=== PATIENT | male | born 1965 | race Caucasian/White ===

== ENCOUNTER 2020-01-12 12:45 | Inpatient (IN) | payer MEDICAID ==
[~2020-01-12] VITALS: Ht 162.6 cm; Wt 73.1 kg
[2020-01-12] MEDS ORDERED: DiphenhydrAMINE HCL 50 MG/ML VIAL IVP ONE (13:15)
[2020-01-12] MEDS ORDERED: LORazepam 2 MG/ML VIAL IVP ONE (13:15)
[2020-01-12] MEDS ORDERED: THIAMINE 100 MG/ML 2 ML VIAL IVP ONE (13:15)
[2020-01-12] MEDS ORDERED: HALOPERIDOL LACTATE 5 MG/ML VIAL IM ONE (13:15)
[2020-01-12] MEDS ORDERED: FOLIC ACID 5 MG/ML 10 ML VIAL IVP ONE (13:15)
[2020-01-12 13:35] LABS: BASOPHILS % (AUTO) 0.2 % (0.0-2.0); EOSINOPHILS % (AUTO) 0 % (1.0-6.0); HEMATOCRIT 42.7 % (41-53); HEMOGLOBIN 14.6 g/dL (13.5-17.5); LYMPHOCYTES # (AUTO) 0.9 K/uL (1.0-4.8); LYMPHOCYTES % (AUTO) 5.9 % (22.0-44.0); MEAN CORPUSCULAR HEMOGLOBIN 29.4 pg (26.0-34.0); MEAN CORPUSCULAR HGB CONC 34.2 G/dL (31.0-37.0); MEAN CORPUSCULAR VOLUME 86 fL (80-100); MONOCYTES # (AUTO) 1.1 K/uL (0.1-1.0); MONOCYTES % (AUTO) 7.3 % (2.0-9.0); NEUTROPHILS # (AUTO) 12.8 K/uL (1.8-7.7); PLATELET COUNT (AUTO) 328 K/uL (150-450); RED BLOOD CELL COUNT(AUTO) 4.96 MIL/uL (4.50-5.90); RED CELL DISTRIBUTION WIDTH 13.6 % (11.5-14.5)
[2020-01-12 13:36] LABS: NEUTROPHILS % (AUTO) 86.6 % (40.0-70.0)
[2020-01-12 13:43] LABS: ANION GAP 14 mmol/L (8-16); CARBON DIOXIDE 22 mmol/L (22-29); CHLORIDE 94 mmol/L (98-107); CREATININE 1.83 mg/dL (0.60-1.30); GLOMERULAR FILTR. RATE CALC 39 mL/min (>60); GLUCOSE,RANDOM 190 mg/dL (70-110); POTASSIUM 3.3 mmol/L (3.5-5.1); SODIUM SERUM 130 mmol/L (136-145); UREA NITROGEN, BLOOD 19 mg/dL (7-18)
[2020-01-12 13:43] LABS: AMPHET/METH SCREEN,URINE POSITIVE (NEGATIVE); BARBITURATE SCREEN, URINE NEGATIVE (NEGATIVE); BENZODIAZEPINES SCREEN,URINE NEGATIVE (NEGATIVE); CANNABINOID SCREEN,URINE NEGATIVE (NEGATIVE); COCAINE SCREEN,URINE NEGATIVE (NEGATIVE); METHADONE SCREEN, URINE NEGATIVE (NEGATIVE); OPIATE SCREEN,URINE NEGATIVE (NEGATIVE)
[2020-01-12 13:49] LABS: INR 1.1 (0.9-1.1); PROTHROMBIN TIME 10.9 SEC (9.4-11.6)
[2020-01-12 13:51] LABS: APPEARANCE,URINE CLOUDY (CLEAR); BILIRUBIN,URINE NEGATIVE (NEGATIVE); GLUCOSE, URINE (UA) 100 mg/dL (NEGATIVE); KETONES,URINE 15 mg/dL (NEGATIVE); LEUKOCYTE ESTERASE ,URINE NEGATIVE (NEGATIVE); NITRATE,URINE NEGATIVE (NEGATIVE); OCCULT BLOOD,URINE NEGATIVE (NEGATIVE); PROTEIN,URINE TRACE (NEGATIVE); UROBILINOGEN,URINE 0.2 mg/dL (<=1.0)
[2020-01-12 13:56] LABS: PHENCYCLIDINE SCREEN,URINE NEGATIVE (NEGATIVE)
[2020-01-12 14:00] LABS: BACTERIA,URINE None Seen /HPF (None Seen); RBC,URINE None Seen /HPF (0-2); SQUAMOUS EPITHELIAL CELL,UR Few /LPF (None Seen); WBC,URINE 0-2 /HPF (0-5)
[2020-01-12] MEDS ORDERED: IOVERSOL 350 MG/ML 100 ML VIAL ONE (14:03)
[2020-01-12] MEDS ORDERED: SODIUM CHLORIDE 0.9% 100 ML ONE (14:03)
[2020-01-12 14:08] LABS: ALANINE AMINOTRANSFERASE 33 U/L (12-78); ALKALINE PHOSPHATASE 67 U/L (46-116); ASPARTATE AMINOTRANSFERASE 33 U/L (15-37); BILIRUBIN,TOTAL 1.7 mg/dL (0.1-1.0); CREATINE KINASE, TOTAL ONLY 698 U/L (39-308); LIPASE 69 U/L (73-393); TOTAL PROTEIN, SERUM 8.1 g/dL (6.4-8.2)
[2020-01-12 14:11] LABS: B-TYPE NATRIURETIC PEPTIDE 55 pg/mL (0-100)
[2020-01-12 14:13] LABS: AMYLASE 43 U/L (25-115)
[2020-01-12] MEDS ORDERED: BISACODYL 10 MG RECTAL RECTAL SUPPOSITORY PR PRN (14:30)
[2020-01-12] MEDS ORDERED: ACETAMINOPHEN 325 MG TABLET PO PRN ×2 (14:30)
[2020-01-12] MEDS: PANTOPRAZOLE SODIUM 40 MG DR TABLET PO SCH (14:30)
[2020-01-12] MEDS ORDERED: ONDANSETRON HCL 4 MG/2 ML VIAL IVP PRN ×2 (14:30)
[2020-01-12] MEDS ORDERED: MAGNESIUM HYDROXIDE SUSPENSION 30 ML UDCUP PO PRN (14:30)
[2020-01-12] MEDS ORDERED: DOCUSATE SODIUM 100 MG CAPSULE PO PRN (14:30)
[2020-01-12] MEDS ORDERED: ALBUTEROL SULFATE 2.5 MG/0.5 ML NEB SOLUTION NEB PRN (14:30)
[2020-01-12] MEDS ORDERED: IPRATROPIUM BROMIDE 0.5 MG/2.5 ML NEB SOLUTION NEB PRN (14:30)
[2020-01-12] MEDS ORDERED: 0.9% SODIUM CHLORIDE 10 ML SYRINGE IVP PRN ×2 (14:30)
[2020-01-12 14:31] LABS: LACTIC ACID 2.4 mmol/L (0.4-2.0)
[2020-01-12] MEDS: 1: MAGNESIUM SULFATE 2 GM, MVI, ADULT NO.1 WITH VIT K 10 ML, THIAMINE 100 MG, FOLIC ACID IV SCH ×5 (15:22)
[2020-01-12] MEDS: CefTRIAXone 1 GM/DEXTROSE 50 ML IV SCH (15:22)
[2020-01-12] MEDS: MetroNIDAZOLE 500 MG/NACL 100 ML IV SCH (16:58)
[2020-01-12 18:37] LABS: TROPONIN I 0.03 ng/mL (0.00-0.05)
[2020-01-12] MEDS: HEPARIN SODIUM,PORCINE 5,000 UNITS/ML VIAL SQ SCH (20:56)
[2020-01-12 21:36] VITALS: BP 119/76
[2020-01-12] MEDS ORDERED: SODIUM CHLORIDE 0.9% 1,000 ML ONE (22:55)
[2020-01-13] MEDS: LORazepam 2 MG/ML VIAL IVP PRN (00:52)
[2020-01-13] MEDS: 1: MAGNESIUM SULFATE 2 GM, MVI, ADULT NO.1 WITH VIT K 10 ML, THIAMINE 100 MG, FOLIC ACID IV SCH ×10 (01:40→17:25)
[2020-01-13] MEDS: MetroNIDAZOLE 500 MG/NACL 100 ML IV SCH ×3 (01:41→15:39)
[2020-01-13 05:02] VITALS: BP 121/75
[2020-01-13 07:32] LABS: HEMOGLOBIN A1C 7.1 % (3.8-5.6)
[2020-01-13] MEDS: PANTOPRAZOLE SODIUM 40 MG DR TABLET PO SCH (07:44)
[2020-01-13 08:17] LABS: ALBUMIN 3.4 g/dL (3.4-5.0); BILIRUBIN,TOTAL 0.9 mg/dL (0.1-1.0); CALCIUM, TOTAL 8.5 mg/dL (8.8-10.5); CREATININE 1.39 mg/dL (0.60-1.30); FREE T4 (FREE THYROXINE) 1.08 ng/dL (0.76-1.46); POTASSIUM 3.4 mmol/L (3.5-5.1); THYROID STIMULATING HORMONE 1.84 uIU/mL (0.36-3.74); TOTAL PROTEIN, SERUM 7.2 g/dL (6.4-8.2)
[2020-01-13 08:37] VITALS: BP 114/81
[2020-01-13 08:43] LABS: BASOPHILS % (AUTO) 0.4 % (0.0-2.0); EOSINOPHILS % (AUTO) 1.8 % (1.0-6.0); HEMATOCRIT 43.1 % (41-53); HEMOGLOBIN 14.4 g/dL (13.5-17.5); LYMPHOCYTES # (AUTO) 1.7 K/uL (1.0-4.8); LYMPHOCYTES % (AUTO) 17.8 % (22.0-44.0); MEAN CORPUSCULAR HEMOGLOBIN 29.2 pg (26.0-34.0); MEAN CORPUSCULAR HGB CONC 33.3 G/dL (31.0-37.0); MEAN CORPUSCULAR VOLUME 88 fL (80-100); MONOCYTES # (AUTO) 0.9 K/uL (0.1-1.0); NEUTROPHILS # (AUTO) 6.8 K/uL (1.8-7.7); RED BLOOD CELL COUNT(AUTO) 4.93 MIL/uL (4.50-5.90); RED CELL DISTRIBUTION WIDTH 14.5 % (11.5-14.5)
[2020-01-13 08:45] LABS: PLATELET COUNT (AUTO) 312 K/uL (150-450)
[2020-01-13] MEDS: HEPARIN SODIUM,PORCINE 5,000 UNITS/ML VIAL SQ SCH ×2 (08:47→21:07)
[2020-01-13 11:09] VITALS: BP 124/79
[2020-01-13] MEDS ORDERED: DEXTROSE 50%-WATER 25 GM/50 ML SYRINGE IVP PRN (13:00)
[2020-01-13] MEDS ORDERED: POTASSIUM CHLORIDE 20 MEQ ER TABLET PO PRN (13:15)
[2020-01-13] MEDS ORDERED: POTASSIUM CHL 10 MEQ/WATER 50 ML IV PRN (13:15)
[2020-01-13] MEDS: CefTRIAXone 1 GM/DEXTROSE 50 ML IV SCH (13:39)
[2020-01-13 16:06] VITALS: BP 117/74
[2020-01-13 20:00] VITALS: BP 140/92
[2020-01-14 00:20] VITALS: BP 143/97
[2020-01-14] MEDS ORDERED: SODIUM CHLORIDE 0.9% 1,000 ML ONE (02:01)
[2020-01-14] MEDS: 1: MAGNESIUM SULFATE 2 GM, MVI, ADULT NO.1 WITH VIT K 10 ML, THIAMINE 100 MG, FOLIC ACID IV SCH ×15 (02:06→22:52)
[2020-01-14] MEDS: MetroNIDAZOLE 500 MG/NACL 100 ML IV SCH ×3 (02:07→16:11)
[2020-01-14 04:33] VITALS: BP 129/91
[2020-01-14 05:30] LABS: GLUCOMETER DEV NAME(LOC) 5S.2A; GLUCOSE,POINT OF CARE 150 MG/DL (70-110)
[2020-01-14 05:30] LABS: GLUCOMETER DEV NAME(LOC) 5S.2A; GLUCOSE,POINT OF CARE 113 MG/DL (70-110)
[2020-01-14 07:15] LABS: GLUCOMETER DEV NAME(LOC) 5S.2A; GLUCOSE,POINT OF CARE 130 MG/DL (70-110)
[2020-01-14 07:19] LABS: BASOPHILS % (AUTO) 0.7 % (0.0-2.0); EOSINOPHILS % (AUTO) 3.5 % (1.0-6.0); HEMATOCRIT 41.7 % (41-53); HEMOGLOBIN 14.1 g/dL (13.5-17.5); LYMPHOCYTES # (AUTO) 1.8 K/uL (1.0-4.8); LYMPHOCYTES % (AUTO) 22.1 % (22.0-44.0); MEAN CORPUSCULAR HEMOGLOBIN 29.9 pg (26.0-34.0); MEAN CORPUSCULAR HGB CONC 33.9 G/dL (31.0-37.0); MEAN CORPUSCULAR VOLUME 88 fL (80-100); MONOCYTES # (AUTO) 0.7 K/uL (0.1-1.0); NEUTROPHILS # (AUTO) 5.3 K/uL (1.8-7.7); NEUTROPHILS % (AUTO) 64.7 % (40.0-70.0); PLATELET COUNT (AUTO) 289 K/uL (150-450); RED BLOOD CELL COUNT(AUTO) 4.73 MIL/uL (4.50-5.90); RED CELL DISTRIBUTION WIDTH 14.4 % (11.5-14.5)
[2020-01-14 07:29] VITALS: BP 137/89
[2020-01-14 07:59] LABS: ALBUMIN 3.1 g/dL (3.4-5.0); BILIRUBIN,TOTAL 0.5 mg/dL (0.1-1.0); CALCIUM, TOTAL 8.3 mg/dL (8.8-10.5); CREATININE 1.34 mg/dL (0.60-1.30); POTASSIUM 3.7 mmol/L (3.5-5.1); TOTAL PROTEIN, SERUM 6.8 g/dL (6.4-8.2)
[2020-01-14] MEDS: HEPARIN SODIUM,PORCINE 5,000 UNITS/ML VIAL SQ SCH ×2 (08:05→22:52)
[2020-01-14] MEDS: PANTOPRAZOLE SODIUM 40 MG DR TABLET PO SCH (09:00)
[2020-01-14 10:53] VITALS: BP 147/91
[2020-01-14] MEDS: INSULIN LISPRO 100 UNITS/ML SQ PRN (12:01)
[2020-01-14] MEDS: LORazepam 2 MG/ML VIAL IVP PRN (12:59)
[2020-01-14] MEDS: CefTRIAXone 1 GM/DEXTROSE 50 ML IV SCH (15:32)
[2020-01-14 15:50] VITALS: BP 158/90
[2020-01-14 17:16] LABS: GLUCOMETER DEV NAME(LOC) 5N.1; GLUCOSE,POINT OF CARE 148 MG/DL (70-110)
[2020-01-14 18:47] LABS: GLUCOMETER DEV NAME(LOC) 5N.1; GLUCOSE,POINT OF CARE 116 MG/DL (70-110)
[2020-01-14 20:44] VITALS: BP 135/79
[2020-01-14 23:47] LABS: GLUCOMETER DEV NAME(LOC) 5S.2A; GLUCOSE,POINT OF CARE 144 MG/DL (70-110)
[2020-01-15] VITALS (8 sets, daily range): BP systolic 113–141; BP diastolic 79–110
[2020-01-15] MEDS: MetroNIDAZOLE 500 MG/NACL 100 ML IV SCH ×3 (01:35→16:27)
[2020-01-15 08:13] LABS: BILIRUBIN,TOTAL 0.4 mg/dL (0.1-1.0); CALCIUM, TOTAL 8.3 mg/dL (8.8-10.5); CREATININE 1.3 mg/dL (0.60-1.30); POTASSIUM 3.8 mmol/L (3.5-5.1); TOTAL PROTEIN, SERUM 6.6 g/dL (6.4-8.2)
[2020-01-15] MEDS: HEPARIN SODIUM,PORCINE 5,000 UNITS/ML VIAL SQ SCH ×2 (08:23→21:29)
[2020-01-15] MEDS: PANTOPRAZOLE SODIUM 40 MG DR TABLET PO SCH (08:23)
[2020-01-15 12:12] LABS: GLUCOMETER DEV NAME(LOC) 5S.1; GLUCOSE,POINT OF CARE 131 MG/DL (70-110)
[2020-01-15] MEDS: 1: MAGNESIUM SULFATE 2 GM, MVI, ADULT NO.1 WITH VIT K 10 ML, THIAMINE 100 MG, FOLIC ACID IV SCH ×5 (12:46)
[2020-01-15] MEDS: CefTRIAXone 1 GM/DEXTROSE 50 ML IV SCH (15:18)
[2020-01-15] MEDS ORDERED: SODIUM CHLORIDE 0.9% 250 ML IV ONE (15:26)
[2020-01-15 17:10] LABS: GLUCOMETER DEV NAME(LOC) 5N.1; GLUCOSE,POINT OF CARE 179 MG/DL (70-110)
[2020-01-15 20:24] LABS: GLUCOMETER DEV NAME(LOC) 5S.1; GLUCOSE,POINT OF CARE 111 MG/DL (70-110)
[2020-01-16] MEDS: MetroNIDAZOLE 500 MG/NACL 100 ML IV SCH ×2 (00:49→08:17)
[2020-01-16] MEDS ORDERED: SODIUM CHLORIDE 0.9% 250 ML IV ONE (00:55)
[2020-01-16 04:02] VITALS: BP 120/79
[2020-01-16 05:45] LABS: GLUCOMETER DEV NAME(LOC) 5S.1; GLUCOSE,POINT OF CARE 137 MG/DL (70-110)
[2020-01-16 06:51] LABS: GLUCOMETER DEV NAME(LOC) 5N.1; GLUCOSE,POINT OF CARE 137 MG/DL (70-110)
[2020-01-16 07:42] VITALS: BP 128/84
[2020-01-16 08:00] LABS: EOSINOPHILS % (AUTO) 8.2 % (1.0-6.0); HEMATOCRIT 42.5 % (41-53); HEMOGLOBIN 14.4 g/dL (13.5-17.5); LYMPHOCYTES # (AUTO) 1.9 K/uL (1.0-4.8); LYMPHOCYTES % (AUTO) 22.7 % (22.0-44.0); MEAN CORPUSCULAR HEMOGLOBIN 29.8 pg (26.0-34.0); MEAN CORPUSCULAR HGB CONC 33.9 G/dL (31.0-37.0); MEAN CORPUSCULAR VOLUME 88 fL (80-100); MONOCYTES # (AUTO) 0.6 K/uL (0.1-1.0); MONOCYTES % (AUTO) 6.6 % (2.0-9.0); NEUTROPHILS # (AUTO) 5.2 K/uL (1.8-7.7); NEUTROPHILS % (AUTO) 61.5 % (40.0-70.0); PLATELET COUNT (AUTO) 327 K/uL (150-450); RED BLOOD CELL COUNT(AUTO) 4.83 MIL/uL (4.50-5.90); RED CELL DISTRIBUTION WIDTH 14.3 % (11.5-14.5)
[2020-01-16 08:04] LABS: ANION GAP 10 mmol/L (8-16); CALCIUM, TOTAL 8.9 mg/dL (8.8-10.5); CARBON DIOXIDE 22 mmol/L (22-29); CHLORIDE 106 mmol/L (98-107); CREATININE 1.21 mg/dL (0.60-1.30); GLOMERULAR FILTR. RATE CALC > 60 mL/min (>60); GLUCOSE,RANDOM 147 mg/dL (70-110); SODIUM SERUM 138 mmol/L (136-145); UREA NITROGEN, BLOOD 14 mg/dL (7-18)
[2020-01-16] MEDS: PANTOPRAZOLE SODIUM 40 MG DR TABLET PO SCH (08:17)
[2020-01-16] MEDS: HEPARIN SODIUM,PORCINE 5,000 UNITS/ML VIAL SQ SCH (08:17)
[2020-01-16] MEDS: 1: MAGNESIUM SULFATE 2 GM, MVI, ADULT NO.1 WITH VIT K 10 ML, THIAMINE 100 MG, FOLIC ACID IV SCH ×5 (09:29)
[2020-01-16 11:34] VITALS: BP 156/98
[2020-01-16] MEDS: INSULIN LISPRO 100 UNITS/ML SQ PRN (11:57)
[2020-01-16 12:03] LABS: GLUCOMETER DEV NAME(LOC) 5N.1; GLUCOSE,POINT OF CARE 149 MG/DL (70-110)
[2020-01-16] MEDS ORDERED: METR500 PO (12:31)
[2020-01-16] MEDS ORDERED: CEPH500 PO (12:31)
[2020-01-16] MEDS ORDERED: MECL25TA31 PO (12:32)
== END 2020-01-16 14:40 | disposition home or self-care (01) | DRG 52 ==
LOC: EMS 12:48 → 5S 14:26 → UNDOADMIN 16:00 → 5S 16:00
PROVIDERS: ADMIT Internal Medicine; ATTEND Internal Medicine
DX: G92 Toxic encephalopathy (principal); N17.0 Acute kidney failure with tubular necrosis; R65.11 Systemic inflammatory response syndrome (SIRS) of non-infectious origin with acute organ dysfunction; J69.0 Pneumonitis due to inhalation of food and vomit; E87.2 Acidosis; M62.82 Rhabdomyolysis; F15.129 Other stimulant abuse with intoxication, unspecified; E87.6 Hypokalemia; E11.65 Type 2 diabetes mellitus with hyperglycemia; F10.239 Alcohol dependence with withdrawal, unspecified; S09.90XA Unspecified injury of head, initial encounter; X58.XXXA Exposure to other specified factors, initial encounter; F17.210 Nicotine dependence, cigarettes, uncomplicated; E87.1 Hypo-osmolality and hyponatremia; N28.9 Disorder of kidney and ureter, unspecified; Y93.89 Activity, other specified; Y92.89 Other specified places as the place of occurrence of the external cause; Y99.8 Other external cause status; Y90.9 Presence of alcohol in blood, level not specified
CPT/HCPCS: 70450; 70496; 70498; 72125; 83036; 83605; 84132; 84145; 84439; 84443; 93005; 93306; 93880; 97116; 97162; 99291; G0480; J0696; J1644; J2060; J3411; J3475; J3490; J7030; J7050

== ENCOUNTER 2020-02-04 18:05 | Emergency (ER) | payer MEDICAID ==
[~2020-02-04] VITALS: Ht 162.6 cm; Wt 79.5 kg
[~2020-02-04 18:05] MED LIST: CEPH500 PO; MECL25TA31 PO; METR500 PO
[2020-02-04 18:21] LABS: GLUCOSE,POINT OF CARE 184 MG/DL (70-110)
[2020-02-04 18:58] LABS: BASOPHILS % (AUTO) 0.9 % (0.0-2.0); EOSINOPHILS % (AUTO) 11.6 % (1.0-6.0); HEMATOCRIT 44.4 % (41-53); HEMOGLOBIN 15.1 g/dL (13.5-17.5); LYMPHOCYTES # (AUTO) 2.6 K/uL (1.0-4.8); LYMPHOCYTES % (AUTO) 31.1 % (22.0-44.0); MEAN CORPUSCULAR HEMOGLOBIN 29.7 pg (26.0-34.0); MEAN CORPUSCULAR HGB CONC 34.1 G/dL (31.0-37.0); MEAN CORPUSCULAR VOLUME 87 fL (80-100); MONOCYTES # (AUTO) 0.7 K/uL (0.1-1.0); NEUTROPHILS # (AUTO) 4.1 K/uL (1.8-7.7); NEUTROPHILS % (AUTO) 48.4 % (40.0-70.0); PLATELET COUNT (AUTO) 306 K/uL (150-450); RED BLOOD CELL COUNT(AUTO) 5.11 MIL/uL (4.50-5.90); RED CELL DISTRIBUTION WIDTH 14.2 % (11.5-14.5)
[2020-02-04 19:27] LABS: CALCIUM, TOTAL 9.1 mg/dL (8.8-10.5); CREATININE 1.4 mg/dL (0.60-1.30); POTASSIUM 3.6 mmol/L (3.5-5.1)
[2020-02-04 19:33] LABS: ALBUMIN 3.6 g/dL (3.4-5.0); BILIRUBIN,TOTAL 0.3 mg/dL (0.1-1.0); TOTAL PROTEIN, SERUM 7.9 g/dL (6.4-8.2)
[2020-02-04 21:13] VITALS: BP 132/85
== END 2020-02-04 20:30 | disposition home or self-care (01) ==
LOC: EMS 18:07
DX: R20.2 Paresthesia of skin (principal); R42 Dizziness and giddiness; R20.0 Anesthesia of skin; F17.210 Nicotine dependence, cigarettes, uncomplicated
CPT/HCPCS: 70450; 93005

== ENCOUNTER 2020-02-06 09:55 | Emergency (ER) | payer MEDICAID ==
[~2020-02-06] VITALS: Ht 162.6 cm; Wt 79.5 kg
[2020-02-06 10:58] VITALS: BP 148/79
[2020-02-06] MEDS ORDERED: HydrOXYzine PAMOATE 25 MG CAPSULE PO ONE (11:00)
== END 2020-02-06 11:16 | disposition home or self-care (01) ==
LOC: EMS 10:12
DX: F41.9 Anxiety disorder, unspecified (principal); R06.02 Shortness of breath; R20.0 Anesthesia of skin; R20.2 Paresthesia of skin; F17.210 Nicotine dependence, cigarettes, uncomplicated
CPT/HCPCS: 99406

== ENCOUNTER 2022-01-01 14:14 | Emergency (ER) | payer SELFPAY ==
[~2022-01-01] VITALS: Ht 162.6 cm; Wt 79.5 kg
[~2022-01-01 14:14] MED LIST changes: +CEPH-558 PO; -CEPH500 PO; +MECL-186 PO; -MECL25TA31 PO
[2022-01-01] MEDS ORDERED: SODIUM CHLORIDE 0.9% 500 ML IV ONE (16:00)
[2022-01-01 16:24] LABS: COVID AG,FIA SOURCE NASOPHARYNGEAL
[2022-01-01 16:51] LABS: INFLUENZA TYPE B NEGATIVE FOR TYPE B (NEGATIVE)
[2022-01-01 17:04] LABS: INFLUENZA TYPE A POSITIVE FOR TYPE A (NEGATIVE)
[2022-01-01 18:14] VITALS: BP 139/82
[2022-01-01 19:08] LABS: APPEARANCE,URINE CLEAR (CLEAR); BILIRUBIN,URINE NEGATIVE (NEGATIVE); GLUCOSE, URINE (UA) NEGATIVE (NEGATIVE); LEUKOCYTE ESTERASE ,URINE NEGATIVE (NEGATIVE); NITRATE,URINE NEGATIVE (NEGATIVE); OCCULT BLOOD,URINE NEGATIVE (NEGATIVE); PROTEIN,URINE 30-70 mg/dL (NEGATIVE); SPECIFIC GRAVITIY, URINE 1.024 (1.003-1.030); UROBILINOGEN,URINE <=1.0 mg/dL (<=1.0)
== END 2022-01-01 18:20 | disposition home or self-care (01) ==
LOC: EMS 14:14
DX: J10.1 Influenza due to other identified influenza virus with other respiratory manifestations (principal); F17.210 Nicotine dependence, cigarettes, uncomplicated; Z87.898 Personal history of other specified conditions; Z87.19 Personal history of other diseases of the digestive system; Z20.822 Contact with and (suspected) exposure to COVID-19
CPT/HCPCS: 71046; 81003; 82962; 87804; 99284